=== PATIENT | female | born 1960 | race Caucasian/White ===

== ENCOUNTER 2024-06-12 10:27 | Inpatient (IN) | payer MEDICARE ==
[~2024-06-12] VITALS: Ht 172.7 cm; Wt 130.0 kg
[2024-06-12] MEDS ORDERED: TRAZ-251 PO (10:57)
[2024-06-12] MEDS ORDERED: HYDR-3964 PO (10:57)
[2024-06-12] MEDS ORDERED: INSU100V39 SQ (10:57)
[2024-06-12] MEDS ORDERED: OMEP20CA16 PO (10:57)
[2024-06-12] MEDS ORDERED: PRAM0.754 (10:57)
[2024-06-12] MEDS ORDERED: ESCI20TA39 (10:57)
[2024-06-12] MEDS ORDERED: CETI10TA14 PO (10:57)
[2024-06-12] MEDS ORDERED: LORA2SYR SUBCUT (10:57)
[2024-06-12] MEDS ORDERED: KETO15CR2 TOP (10:57)
[2024-06-12] MEDS ORDERED: INSU100I50 (10:57)
[2024-06-12] MEDS ORDERED: FLUC150T54 (10:57)
[2024-06-12 11:52] LABS: BASOPHILS # (AUTO) 0.1 X10'3 (0-0.2); BASOPHILS % (AUTO) 0.7 % (0-1); EOSINOPHILS # (AUTO) 0.1 X10'3 (0-0.9); EOSINOPHILS % (AUTO) 0.9 % (0-6); HEMOGLOBIN 13.6 g/dl (12.0-16.0); LYMPHOCYTES # (AUTO) 1.9 X10'3 (1.1-4.8); LYMPHOCYTES % (AUTO) 14.6 % (21-51); MEAN CORPUSCULAR HEMOGLOBIN 31.6 PG (27.0-31.0); MEAN CORPUSCULAR VOLUME 93.1 FL (78-98); MEAN PLATELET VOLUME 8.5 FL (7.4-10.4); MONOCYTES # (AUTO) 0.6 X10'3 (0-0.9); MONOCYTES % (AUTO) 4.8 % (2-12); NEUTROPHILS # (AUTO) 10.4 X10'3 (1.8-7.7); PLATELET COUNT 302 X10'3 (140-440); RED BLOOD COUNT 4.29 X10'6 (4.20-5.60); RED CELL DISTRIBUTION WIDTH 12.4 % (11.5-14.5); WHITE BLOOD COUNT 13.1 X10'3 (4.5-11.0)
[2024-06-12 12:08] LABS: ALANINE AMINOTRANSFERASE 25 U/L (12-78); ALBUMIN 3.1 G/DL (3.4-5.0); ALBUMIN/GLOBULIN RATIO 0.7 (1.1-1.5); ALKALINE PHOSPHATASE 217 IU/L (46-116); ANION GAP 7 (8-16); ASPARTATE AMINO TRANSFERASE 19 U/L (10-37); BILIRUBIN,TOTAL 0.4 MG/DL (0.1-1.0); BLOOD UREA NITROGEN 20 MG/DL (7-18); BUN/CREATININE RATIO 21.5 (10.0-20.0); CALCIUM 9.1 MG/DL (8.5-10.1); CHLORIDE 103 MMOL/L (99-107); CREATININE 0.93 MG/DL (0.40-0.90); GLUCOSE 110 MG/DL (70-104); POTASSIUM 3.7 MMOL/L (3.5-5.1); SODIUM 141 MMOL/L (135-145); TOTAL CARBON DIOXIDE 30.6 MMOL/L (24-32); TOTAL PROTEIN 7.3 G/DL (6.4-8.2); eCRCL 62 ML/MIN; eGFR 61 ML/MIN
[2024-06-12 12:15] LABS: PRO BRAIN NATRIURETIC PEPTIDE 70 PG/ML (0-125)
[2024-06-12 12:29] LABS: BILIRUBIN,URINE NEGATIVE (Neg); CLARITY,URINE CLEAR (Clear); COLOR,URINE YELLOW (Yellow); GLUCOSE, URINE NEGATIVE (Neg); KETONES,URINE NEGATIVE (Neg); LEUKOCYTE ESTERASE ,URINE NEGATIVE (Neg); NITRITES, URINE NEGATIVE (Neg); OCCULT BLOOD,URINE TRACE-INTACT (Neg); PH,URINE 6.5 (4.8-8.0); PROTEIN,URINE NEGATIVE (Neg); UROBILINOGEN,URINE 0.2 E.U/dL (0.2-1.0)
[2024-06-12 12:34] LABS: UA COLLECTION TYPE VOIDED
[2024-06-12 12:35] LABS: BACTERIA,URINE NONE SEEN /HPF (Neg); MUCUS STRANDS FEW /LPF (Neg); RBC,URINE 0-2 /HPF (0-2); SQUAMOUS EPITHELIAL CELL,UR MODERATE /LPF (FEW); WBC,URINE NONE SEEN /HPF (0-4)
[2024-06-12] MEDS ORDERED: diphenhydrAMINE 50 mg/ml inj IV PRN (13:45)
[2024-06-12] MEDS ORDERED: magnesium hydroxide 30ml (MOM) UD suspension PO PRN (13:45)
[2024-06-12] MEDS ORDERED: bisacodyl 10mg suppository rectal RC PRN (13:45)
[2024-06-12] MEDS ORDERED: acetaminophen 325mg tablet PO PRN (13:45)
[2024-06-12] MEDS ORDERED: mag hydrox/Alum hydrox/simeth 30ml oral suspension PO PRN (13:45)
[2024-06-12] MEDS ORDERED: acetaminophen 650mg rectal suppository RC PRN (13:45)
[2024-06-12] MEDS ORDERED: ondansetron 4mg rapidly disintigrating tab PO PRN (13:45)
[2024-06-12] MEDS ORDERED: DEXTROSE 15 GM of carb/4 tabs (each vial/BOTTLE has 4 tablets) PO PRN ×2 (13:55)
[2024-06-12] MEDS ORDERED: dextrose 50%-water 50ml dispensing syringe IV PRN ×2 (13:55)
[2024-06-12] MEDS ORDERED: glucagon, human recombinant 1mg kit SUBCUT PRN (13:55)
[2024-06-12 14:21] LABS: APTT 28 SECONDS (22-32); INR 0.9 INR; PROTHROMBIN TIME 9.9 SECONDS (9.0-12.0)
[2024-06-12 14:32] LABS: MAGNESIUM 2.1 MG/DL (1.5-2.4); PHOSPHORUS 2.9 MG/DL (2.3-4.5); THYROID STIMULATING HORMONE 3.46 ulU/ml (0.34-4.50)
[2024-06-12] MEDS: normal saline 1000ml 1,000 ML IV SCH (14:35)
[2024-06-12] MEDS: acetaminophen 325mg tablet PO PRN (14:51)
[2024-06-12] MEDS: vancomycin/NS 1 GM ADD-VANTAGE 250 ML IV SCH (16:12)
[2024-06-12] MEDS: heparin, porcine 5000 units/ml vial SQ SCH (16:12)
[2024-06-12] MEDS: piperacillin/tazo 3.375gm/50ml 50 ML IV SCH (16:12)
[2024-06-12] MEDS: INSULIN LISPRO 100 UNIT/ML INSULN.PEN MULTI-DOSE SQ SCH (17:51)
[2024-06-12 18:37] LABS: URINE AMPHETAMINE SCREEN NEGATIVE (Neg); URINE BARBITUATE SCREEN NEGATIVE (Neg); URINE BENZODIAZEPINES SCREEN NEGATIVE (Neg); URINE CANNABINOID SCREEN POSITIVE (Neg); URINE COCAINE SCREEN NEGATIVE (Neg); URINE METHADONE SCREEN NEGATIVE (Neg); URINE OPIATE SCREEN NEGATIVE (Neg); URINE PHENCYCLIDINE SCREEN NEGATIVE (Neg)
[2024-06-12] MEDS ORDERED: VANCOMYCIN 1GM 200ML H20 (PEG) 200 ML IV SCH (20:00)
[2024-06-12] MEDS: docusate sod 100mg capsule PO SCH (20:00)
[2024-06-12] MEDS: insulin glargine (Lantus) pen - multi-dose SQ SCH (21:00)
[2024-06-12] MEDS ORDERED: traZODone 50mg tablet PO PRN (21:40)
[2024-06-12] MEDS: cetirizine 10mg tablet PO SCH (21:45)
[2024-06-12 22:00] VITALS: BP 154/67; PULSE 70; RESP 18; TEMP 97.3; O2SAT 97
[2024-06-12] MEDS: HYDROcodone/acetaminophen 5mg/325mg tablet PO PRN (22:14)
[2024-06-12] MEDS: pramipexole 0.25mg tablet PO SCH (23:36)
[2024-06-13] MEDS ORDERED: LORazepam 1 MG tablet PO SCH
[2024-06-13 06:13] LABS: BASOPHILS # (AUTO) 0.1 X10'3 (0-0.2); BASOPHILS % (AUTO) 0.7 % (0-1); EOSINOPHILS # (AUTO) 0.3 X10'3 (0-0.9); EOSINOPHILS % (AUTO) 2.3 % (0-6); HEMATOCRIT 39.9 % (35.0-45.0); HEMOGLOBIN 13.5 g/dl (12.0-16.0); LYMPHOCYTES # (AUTO) 2.4 X10'3 (1.1-4.8); LYMPHOCYTES % (AUTO) 21.8 % (21-51); MEAN CORPUSCULAR HEMOGLOBIN 31.5 PG (27.0-31.0); MEAN CORPUSCULAR HGB CONC 33.8 g/dL (33.0-36.5); MEAN CORPUSCULAR VOLUME 93.1 FL (78-98); MEAN PLATELET VOLUME 8.7 FL (7.4-10.4); MONOCYTES # (AUTO) 0.6 X10'3 (0-0.9); MONOCYTES % (AUTO) 5.6 % (2-12); NEUTROPHILS # (AUTO) 7.7 X10'3 (1.8-7.7); NEUTROPHILS % (AUTO) 69.6 % (42-75); PLATELET COUNT 318 X10'3 (140-440); RED BLOOD COUNT 4.29 X10'6 (4.20-5.60); RED CELL DISTRIBUTION WIDTH 12.3 % (11.5-14.5); WHITE BLOOD COUNT 11.1 X10'3 (4.5-11.0)
[2024-06-13 06:34] LABS: ALANINE AMINOTRANSFERASE 29 U/L (12-78); ALBUMIN/GLOBULIN RATIO 0.8 (1.1-1.5); ALKALINE PHOSPHATASE 195 IU/L (46-116); ANION GAP 7 (8-16); ASPARTATE AMINO TRANSFERASE 18 U/L (10-37); BILIRUBIN,TOTAL 0.7 MG/DL (0.1-1.0); BLOOD UREA NITROGEN 14 MG/DL (7-18); BUN/CREATININE RATIO 19.4 (10.0-20.0); CALCIUM 9.1 MG/DL (8.5-10.1); CHLORIDE 107 MMOL/L (99-107); CHOL/HDL RATIO 5.1 (0.00-4.99); CHOLESTEROL 173 MG/DL (0-200); CREATININE 0.72 MG/DL (0.40-0.90); GLUCOSE 69 MG/DL (70-104); HDL CHOLESTEROL 34 MG/DL (35-60); LDL CHOLESTEROL 107 MG/DL (50-100); SODIUM 144 MMOL/L (135-145); TOTAL CARBON DIOXIDE 29.8 MMOL/L (24-32); TRIGLYCERIDES 191 MG/DL (20-135); eCRCL 81 ML/MIN; eGFR 82 ML/MIN
[2024-06-13 07:05] VITALS: BP 127/36; PULSE 67; RESP 18; TEMP 97; O2SAT 96
[2024-06-13] MEDS: pantoprazole 40mg Tablet.DR PO SCH (07:30)
[2024-06-13 07:50] VITALS: RESP 16
[2024-06-13] MEDS: nicotine 21mg patch - 24 hr TD SCH (07:51)
[2024-06-13] MEDS ORDERED: FLU VACC TS2024-25(6MOS UP)/PF 45 MCG/0.5 ML SYRINGE IMVAC ONE (10:00)
[2024-06-13] MEDS: ESCITALOPRAM 10 mg tablet 10 MG TABLET PO SCH (11:24)
[2024-06-13] MEDS: pregabalin 25mg capsule PO SCH (11:24)
[2024-06-13] MEDS: pregabalin 75mg capsule PO SCH (11:24)
[2024-06-13] MEDS: VANCOMYCIN LEVEL IV ONE (15:30)
[2024-06-13 18:30] VITALS: BP 139/50; PULSE 67; RESP 17; TEMP 97.3; O2SAT 92
[2024-06-14 05:58] LABS: BASOPHILS # (AUTO) 0.1 X10'3 (0-0.2); BASOPHILS % (AUTO) 0.6 % (0-1); EOSINOPHILS # (AUTO) 0.2 X10'3 (0-0.9); EOSINOPHILS % (AUTO) 2.3 % (0-6); HEMATOCRIT 40.2 % (35.0-45.0); HEMOGLOBIN 13.5 g/dl (12.0-16.0); LYMPHOCYTES % (AUTO) 21.2 % (21-51); MEAN CORPUSCULAR HEMOGLOBIN 31.4 PG (27.0-31.0); MEAN CORPUSCULAR HGB CONC 33.5 g/dL (33.0-36.5); MEAN CORPUSCULAR VOLUME 93.7 FL (78-98); MEAN PLATELET VOLUME 8.5 FL (7.4-10.4); MONOCYTES # (AUTO) 0.6 X10'3 (0-0.9); MONOCYTES % (AUTO) 6.6 % (2-12); NEUTROPHILS # (AUTO) 6.7 X10'3 (1.8-7.7); NEUTROPHILS % (AUTO) 69.3 % (42-75); PLATELET COUNT 327 X10'3 (140-440); RED BLOOD COUNT 4.28 X10'6 (4.20-5.60); RED CELL DISTRIBUTION WIDTH 12.3 % (11.5-14.5); WHITE BLOOD COUNT 9.6 X10'3 (4.5-11.0)
[2024-06-14 06:00] VITALS: BP 123/44; PULSE 64; RESP 16; TEMP 97.2; O2SAT 98
[2024-06-14 06:29] LABS: ALANINE AMINOTRANSFERASE 29 U/L (12-78); ALBUMIN 2.9 G/DL (3.4-5.0); ALBUMIN/GLOBULIN RATIO 0.7 (1.1-1.5); ALKALINE PHOSPHATASE 189 IU/L (46-116); ANION GAP 6 (8-16); ASPARTATE AMINO TRANSFERASE 26 U/L (10-37); BILIRUBIN,TOTAL 0.7 MG/DL (0.1-1.0); BLOOD UREA NITROGEN 15 MG/DL (7-18); BUN/CREATININE RATIO 16.5 (10.0-20.0); CALCIUM 8.9 MG/DL (8.5-10.1); CHLORIDE 108 MMOL/L (99-107); CREATININE 0.91 MG/DL (0.40-0.90); GLUCOSE 121 MG/DL (70-104); SODIUM 144 MMOL/L (135-145); TOTAL CARBON DIOXIDE 30.3 MMOL/L (24-32); TOTAL PROTEIN 7.1 G/DL (6.4-8.2); eCRCL 64 ML/MIN; eGFR 62 ML/MIN
[2024-06-14 10:00] VITALS: BP 106/37; PULSE 74; RESP 18; TEMP 97.3; O2SAT 95
[2024-06-14] MEDS ORDERED: CEPH750C7 PO (11:27)
[2024-06-14] MEDS: FLU VACC TS2024-25(6MOS UP)/PF 45 MCG/0.5 ML SYRINGE IMVAC ONE (13:51)
== END 2024-06-14 15:37 | disposition home or self-care (01) | DRG 638 ==
LOC: ER 10:28 → ED HOLD 13:51 → SUR 3N 19:14
PROVIDERS: ADMIT Family Medicine; ATTEND Family Medicine
DX: E10.628 Type 1 diabetes mellitus with other skin complications (principal); L03.115 Cellulitis of right lower limb; Z68.41 Body mass index [BMI] 40.0-44.9, adult; R65.10 Systemic inflammatory response syndrome (SIRS) of non-infectious origin without acute organ dysfunction; S91.101A Unspecified open wound of right great toe without damage to nail, initial encounter; E66.01 Morbid (severe) obesity due to excess calories; G89.4 Chronic pain syndrome; I10 Essential (primary) hypertension; G25.81 Restless legs syndrome; K21.9 Gastro-esophageal reflux disease without esophagitis; Z72.0 Tobacco use; Z79.891 Long term (current) use of opiate analgesic; X58.XXXA Exposure to other specified factors, initial encounter; Y93.89 Activity, other specified; Y92.89 Other specified places as the place of occurrence of the external cause; Y99.8 Other external cause status
CPT/HCPCS: 36415; 73630; 73721; 80053; 80061; 80202; 80305; 81001; 82948; 83036; 83735; 83880; 84100; 84443; 85025; 85610; 85730; 87081; 90686; 93971; 97116; 97161; 97530; 99285; A6223; A6446; A6449; G0378; J1644; J1815; J2543; J3370; J7030

== ENCOUNTER 2025-04-20 08:31 | Emergency (ER) | payer MEDICARE, OTHER ==
[~2025-04-20] VITALS: Ht 175.3 cm; Wt 133.5 kg
[~2025-04-20 08:31] MED LIST: CEPH750C7 PO; CETI10TA14 PO; ESCI20TA39; FLUC150T54; HYDR-3964 PO; INSU100I50; INSU100V39 SQ; KETO15CR2 TOP; LORA2SYR SUBCUT; OMEP20CA16 PO; PRAM0.754; TRAZ-251 PO
[2025-04-20 08:59] VITALS: TEMP 98.1
--- NOTE | 2025-04-20 09:28 | RADIOLOGY REPORT ---
EXAM: DI KNEE LIMITED (AP/LAT) right CLINICAL INDICATION: Fell and painful TECHNIQUE: DI KNEE LIMITED (AP/LAT) Comparison: None FINDINGS/IMPRESSION: No acute fracture or dislocation. Punctate radiopaque density seen in the soft tissues likely phleboliths. No significant joint effusion. Diffuse soft tissue swelling. Osseous lesion with heterogeneous appearance likely from underlying calcification/mineralization in the distal femur measuring approximately 2 cm, likely chondroid lesion. Recommend follow-up radiograph in 6-12 months to ensure stability.
[2025-04-20 09:30] VITALS: BP 165/83
[2025-04-20 09:39] LABS: MEAN PLATELET VOLUME 7.5 FL (7.4-10.4); RED CELL DISTRIBUTION WIDTH 14.7 % (11.5-14.5)
[2025-04-20 09:52] LABS: CREATININE 1.06 MG/DL (0.40-0.90); TOTAL CARBON DIOXIDE 26.3 MMOL/L (24-32); eCRCL 56 ML/MIN; eGFR 52 ML/MIN
--- NOTE | 2025-04-20 09:58 | Physician Documentation ---
History of Present Illness ~ Chief Complaint: Leg Pain Stated Complaint: R LEG SWELLING Time Seen by MD: 08:47 OK to notify your PCP?: Yes Mode of Arrival: Ambulatory HPI 65-year-old female patient with a history of hypertension, diabetes, peripheral neuropathy, chronic pain syndrome, gastroesophageal reflux disease, read less leg syndrome, currently smoking with chronic tobacco dependency and the lymphedema in the right lower extremity came to the emergency room because of right knee pain that has been going on for two days. She has a slight pain after the for two days ago. He has been ambulatory with cane. The patient denies fever or chills, chest pain, shortness a breath, abdominal pain and nausea vomiting. Tetanus witin 5 years: No Medication Reconciliation Allergies: Coded Allergies: oxycodone (Verified Adverse Reaction, Mild, nauseated, 06/12/24) Scheduled Cephalexin (Cephalexin), 1 CAP PO TID Cetirizine HCl (Cetirizine HCl), 1 TAB PO DAILY, (Reported) Insulin Aspart (Niacinamide) (Fiasp 100 Unit/ml Vial), 0-130 UNITS SQ DAILY, (Reported) Ketoconazole (Ketoconazole), TOP BID, (Reported) Lorazepam (Lorazepam), 1 MG SUBCUT Q4H, (Reported) Omeprazole (Omeprazole), 1 CAP PO DAILY, (Reported) Scheduled PRN Hydrocodone Bit/Acetaminophen (Hydrocodon-Acetaminophen 5-325), 1 TAB PO Q12H PRN PRN for pain, (Reported) Trazodone HCl (Trazodone HCl), 1-2 TAB PO HS PRN for insomnia, (Reported) Miscellaneous Medications Escitalopram Oxalate (Escitalopram Oxalate), (Reported) Fluconazole (Fluconazole), (Reported) Insulin NPH Human Isophane (Novolin N Flexpen), (Reported) Pramipexole Di-HCl (Pramipexole Dihydrochloride), (Reported) Review of Systems ROS As stated above in the HPI, otherwise all systems are reviewed and negative. Physical Exam Vital Signs: Temperature: 98.1, Source: Oral, Heart Rate: 78, Respiratory Rate: 14, BP: 133/58, Pulse Oximetry: 98, Weight: 133.500 Oxygen Flow Rate: 0 Physical Exam Reviewed vital signs and they are well within normal range. Const: [ ] Head: Atraumatic Eyes: Normal Conjunctiva ENT: Normal External Ears, Nose and Mouth. [Moist mucous membranes] Neck: Full range of motion. No meningismus Resp: Clear to auscultation bilaterally. Normal work of breathing Cardio: Regular rate and rhythm, no murmurs. Skin well perfused Abd: Soft, non-tender, non-distended. Normal bowel sounds. No rebound or guarding Skin: No petechiae or rashes. Warm and dry Back: No midline or flank tenderness Ext: No cyanosis, or edema Neuro: Awake and alert Psych: Normal Mood and Affect Progress Results/Orders Results/Orders Orders - MURALI WHITE MD Knee Limited (Ap/Lat) (04/20/25 09:02) Completed Orders - MURALI WHITE MD Cbc/Diff (04/20/25 09:01) MG (04/20/25 09:01) Procalcitonin (04/20/25 09:01) BMP (04/20/25 09:01) C-Reactive Protein (04/20/25 09:01) Knee Limited (Ap/Lat) (04/20/25 09:02) Sulfamethox/Trimetho. Ds Tab (Septra Ds (04/20/25 11:15) Vital Signs 04/20/25 04/20/25 04/20/25 04/20/25 08:34 08:44 08:59 09:30 Temp 98.6 98.1 Pulse 78 78 78 Resp 20 14 16 B/P (MAP) 149/61 133/58 (83) 165/83 (110) Pulse Ox 98 98 97 O2 Flow Rate 0 0 Laboratory Tests Test 04/20/25 09:29 White Blood Count 14.4 H Red Blood Count 4.19 L Hemoglobin 11.9 L Hematocrit 36.1 Mean Corpuscular Volume 86.1 Mean Corpuscular Hemoglobin 28.5 Mean Corpuscular Hemoglobin Concent 33.1 Red Cell Distribution Width 14.7 H Platelet Count 377 Mean Platelet Volume 7.5 Neutrophils (%) (Auto) 81.2 H Lymphocytes (%) (Auto) 11.8 L Monocytes (%) (Auto) 5.4 Eosinophils (%) (Auto) 1.0 Basophils (%) (Auto) 0.6 Neutrophils # (Auto) 11.7 H Lymphocytes # (Auto) 1.7 Monocytes # (Auto) 0.8 Eosinophils # (Auto) 0.1 Basophils # (Auto) 0.1 CBC Comment Sodium Level 141 Potassium Level 3.9 Chloride Level 107 Carbon Dioxide Level 26.3 Anion Gap 8 Blood Urea Nitrogen 27 H Creatinine 1.06 H Estimated GFR/1.73 m2 52 BUN/Creatinine Ratio 25.5 H Glucose Level 112 H Calcium Level 8.8 Magnesium Level 2.1 C-Reactive Protein 7.73 H Albumin 3.1 L Procalcitonin 30.52 H Chemistry Comments Medical Decision Making Additional information obtaine: other Findings During the physical examination, the findings suggestive of acute life- threatening condition such as JVD, tracheal deviation, acidotic breathing, noisy stridorous breath sounds, pulses paradoxus, muffled heart sounds, unequal breath sounds, abdominal rigidity and rebound tenderness, focal neurological deficits, cool clammy skin, severe hypotension, severe tachycardia or bradycardia are absent. Physical examination showed erythematous tender skin over the right knee. Labs reviewed and both CRP and procalcitonin is elevated. And I advised the patient to be admitted for IV antibiotics for cellulitis because of her diabetes. Patient refused admission and she will try p.o. antibiotics and the I told her that it is not getting better after two days she needs to come in or if she is getting worse during the time. She was given Bactrim double strength two tablets in the emergency room and I will write Bactrim and cephalexin p.o. for outpatient therapy. DISCLAIMER Inadvertent spelling and grammatical errors,inadvertent racehorse trainer errors,syntax errors, grammatical errors, and spelling errors are likely due to EMR/dictation software use and do not reflect on the overall quality of patient care. Note that the electronic time recorded on this note does not necessarily reflect the actual time of the patient encounter. General Diff Dx:Considerations: Include: Contusion Knee Diff Dx:Considerations: Include: Arthritis, Contusion, DJD, Rheumatoid arthritis, Septic Departure Disposition: 01 HOME / SELF CARE / HOMELESS Impression: Primary Impression: Cellulitis Condition: Stable Discharge Instructions: Cellulitis, Adult Additional Instructions: Thank you for coming to our Emergency Department today. Please ask your nurse or provider if you have questions about your care today and do not leave until all your questions have been answered. Please use any medications given as directed and follow-up with your doctor (or the doctor you were referred to) in the next 1-3 days. Your primary care doctor can help to coordinate outpatient specialty care and provide authorization for specialty referral as needed. If you do not have a primary care doctor you may follow up at a [facility]. You may also use motrin and tylenol as needed for fever and/or pain unless instructed otherwise by your provider or nurse. Indications for more urgent follow-up have been discussed, but you may return to the Emergency Department at ANY time for any worrisome or worsening symptoms. County Facilities: [facility] Facilities: [facility]: [facility] Address:[address] [place] [address] [facility]: [place] Address:[facility] [place] [address] [facility] Address:[address] [place] [address] [facility] Address:[address] [place] [address] Registration Billing Pharmacy [facility] Address:[address] [place] [address] Referrals: NO PRIMARY CARE PROVIDER (PCP) Prescriptions Sulfamethoxazole/Trimethoprim (Bactrim Ds Tablet) 800 Mg-160 Mg Tablet 1 TAB PO Q12H for 10 Days, #20 TAB Prov: MURALI WHITE MD 04/20/25 Cephalexin Monohydrate (Cephalexin) 500 Mg Capsule 1 CAP PO Q8H for 10 Days, #30 CAP Prov: MURALI WHITE MD 04/20/25 Signature Scribe Signature: x Attestation: MURALI Macedo MD Apr 20, 2025 09:58
[2025-04-20] MEDS ORDERED: SULF1TAB49 PO (11:30)
[2025-04-20] MEDS ORDERED: CEPH500C3 PO (11:30)
[2025-04-20] MEDS: sulfamethoxazole/trimethoprim DS (800/160mg) tablet PO ONE (11:32)
[2025-04-20 11:44] VITALS: PULSE 81; RESP 14; O2SAT 98
== END 2025-04-20 11:48 | disposition home or self-care (01) ==
LOC: ER 08:32
DX: L03.115 Cellulitis of right lower limb (principal); G89.4 Chronic pain syndrome; I10 Essential (primary) hypertension; F17.200 Nicotine dependence, unspecified, uncomplicated; E11.42 Type 2 diabetes mellitus with diabetic polyneuropathy; K21.9 Gastro-esophageal reflux disease without esophagitis; Z88.5 Allergy status to narcotic agent; Z79.84 Long term (current) use of oral hypoglycemic drugs; Z79.899 Other long term (current) drug therapy
CPT/HCPCS: 36415; 73560; 80048; 83735; 84145; 85025; 86140; 99284